=== PATIENT | female | born 1995 | race Caucasian/White ===

== ENCOUNTER 2017-07-29 15:44 | Emergency (ER) | payer BC, SELFPAY | END 2017-07-29 16:39 | disposition home or self-care (01) | DX: K02.9 Dental caries, unspecified (principal); F17.210 Nicotine dependence, cigarettes, uncomplicated | CPT/HCPCS: 96372 ==

== ENCOUNTER 2021-03-15 14:14 | Emergency (ER) | payer OTHER, SELFPAY ==
[2021-03-15 15:17] LABS: Adenovirus,PCR Not Detected (NotDetected); Bordetella Pertussis Not Detected (NotDetected); Chlamydophila Pneumoniae, PCR Not Detected (NotDetected); Coronavirus 229E Not Detected (NotDetected); Coronavirus NL63 Not Detected (NotDetected); Coronavirus OC43 Not Detected (NotDetected); Coronovirus HKU1,PCR Not Detected (NotDetected); Human Metapneumovirus Not Detected (NotDetected); Influenza A, PCR Not Detected (NotDetected); Influenza AH1, 2009 Not Detected (NotDetected); Influenza AH1, PCR Not Detected (NotDetected); Influenza AH3,PCR Not Detected (NotDetected); Influenza B, PCR Not Detected (NotDetected); Mycoplasma Pneumoniae, PCR Not Detected (NotDetected); Parainfluenza 1, PCR Not Detected (NotDetected); Parainfluenza 2, PCR Not Detected (NotDetected); Parainfluenza 3, PCR Not Detected (NotDetected); Parainfluenza 4, PCR Not Detected (NotDetected); Respiratory Syncytial Virus Not Detected (NotDetected); Rhinovirus/Enterovirus Not Detected (NotDetected)
[2021-03-15 15:20] VITALS: BP 124/83; PULSE 98; RESP 18; TEMP 36.8; O2SAT 98; BMI 31.3
[2021-03-15 15:30] VITALS: BP 124/83; PULSE 98; RESP 18; TEMP 36.8; O2SAT 98
--- NOTE | 2021-03-15 15:33 | HMH.EDUTC ---
[facility] – [place] Disposition Clinical Impression: Viral syndrome Disposition: Home, Self-Care Condition on Discharge: Good Instructions: DI for Viral Syndrome, DI for COVID-19 (Suspected or Confirmed ), Coronavirus Disease 2019, Preventing the Spread of Coronavirus Discharge Instructions Additional Instructions: *Monitor Temp, Over the counter Motrin or Tylenol as directed/as needed Tylenol every 4 hours and Motrin every 6 hours (as long as your family doctor has told you that you can take it) for fever or pain. and straight to ER if unable to lower temp less than 101.0 after medication given *Warm salt water gargles may help to soothe the throat *Throat Lozenges *Warm fluids like tea with honey may help to soothe the throat *Sleep elevated *Humidifier/Vaporizer *Flonase 2 sprays in each nostril daily but be aware that it may take 2-3 days before you notice improvement Follow up IMMEDIATELY for new or worsening symptoms or no Noticeable improvement over the next 48-72 hours. 911 for difficulty breathing or swallowing You were tested for today for COVID19 your test result should be back in the next 24-48 hours, you may call to the [facility] to see if your test results are back in the next 48 hours [phone] [facility] hours are 9am-9pm You was given a handout with instructions for Self Quarantine and Self isolation for while you wait on test results and what to do if they are positive If you are positive the Health Dept will be contacting you also Make sure to take your Vitamins Vit. C Vit D and Zinc if you can take them Referrals: Jose Carlos Khan MD [Primary Care Provider] - As needed Forms: Work/School Release Time of Disposition: 16:23 Medical Decision Making - Adithya Inquiry Pt receiving controlled substance: No Adithya was queried for this patient: No Vital Signs: 03/15/21 15:20 03/15/21 15:30 Temperature 98.3 F 98.3 F Temperature Source Oral Pulse Rate 98 H Pulse Rate [Right Radial] 98 H Respiratory Rate 18 18 Blood Pressure 124/83 Blood Pressure [Right Arm] 124/83 Blood Pressure Mean [Right Arm] 96 Blood Pressure Source [Right Arm] Automatic Cuff Blood Pressure Position [Right Arm] Sitting 02 Sat by Pulse Oximetry 98 Oxygen Delivery Method Room Air Orders (Tests/Meds): ORDERS Category Date Time Status Full Resp Panel w/COVID ([facility]) Routine Lab 03/15/21 14:57 Received [facility] [place] HPI - General Stated complaint: covid test to return to work Time Seen by Provider: 03/15/21 15:33 Mode of Arrival: Ambulatory Source of Information: Patient Limitations: No Limitations Description of Symptoms (Recalled from Triage Doc. by RN): PT REPORTS FEVER, HEAD CONGESTION, CHILLS, MUSCLE PAIN, CHEST CONGESTION AND INTERMITTENT SOA. HEENT Symptoms (Recalled from RN notes): Yes (REPORTS CONGESTION,) Resp Symptoms (Recalled from RN notes): Yes (REPORTS INTERMITTENT SOA) Skin Symptoms (Recalled from RN notes): No MS Symptoms (Recalled from RN notes): No Functional Status (Recalled from RN notes): N/A - History of Present Illness Provider Complaint: Patient states that she wanted to get tested for COVID States that she has been having sore throat, cough, feeling like she is starting to get nasal congestion with runny nose at times when she is coughing feels like sometimes it makes her feel a little short of breath States that she wanted to get tested for COVID to make sure she didnt have it Denies known exposure - Related Data Allergies Allergy/AdvReac Type Severity Reaction Status Date / Time No Known Allergies Allergy Unverified 07/17/17 14:02 - Worker's Comp Is this a Worker's Comp case?: No [facility] History - Hepatitis A Screen Drug use history?: No High risk sexual behaviors?: No History of sexually transmitted infection?: No Currently employed?: No Childcare worker?: No Do you have indoor plumbing?: Yes Do you have electricity?: Yes Attestation statement:: This patient has been screened for Hepatitis A risk f
[2021-03-16 09:20] LABS: Coronavirus 19, PCR Detected (NotDetected)
--- NOTE | 2021-03-16 09:49 | PC.NURSE ---
pt notified with positive covid result.
== END 2021-03-15 15:40 | disposition home or self-care (01) ==
PROVIDERS: Emergency Provider Nurse Practitioner; PCP Family Medicine
DX: U07.1 COVID-19 (principal); B34.9 Viral infection, unspecified
CPT/HCPCS: 87581; 87633; 87798; 99202; G0463

== ENCOUNTER → 2021-08-12 17:24 | Outpatient (CLI) | payer BC, OTHER, SELFPAY ==
[2021-08-12 18:40] LABS: HCG,Quantitative 1685 mIU/ml (0-5.42)
== END ==
PROVIDERS: Visit Provider Nurse Practitioner Obstetrics & Gynecology
DX: N92.6 Irregular menstruation, unspecified (principal)
CPT/HCPCS: 36415; 84702

== ENCOUNTER → 2021-09-08 13:42 | Outpatient (CLI) | payer BC, OTHER, SELFPAY ==
--- NOTE | 2021-09-08 13:47 | US_ITS ---
FINAL REPORT CLINICAL HISTORY: US OB before 14 wks for DATES/Confirmation of Preg FINDINGS: PELVIC ULTRASOUND A single living intrauterine is present. A yolk sac is present measuring 0.5 cm. Cardiac activity is confirmed at 154 beats per minute. Estimated gestational age is 8 weeks 5 days based on a crown-rump length of 2.1 cm. Appropriate amount of fluid is present. The right ovary measures up to 3.2 cm. The left ovary measures up to 2.8 cm. There is a 2.1 cm presumed to are right corpus luteum cyst. IMPRESSION: Single living intrauterine with an estimated gestational age of 8 weeks 5 days. Reviewed, Interpreted and Dictated by Felice Otero III, MD Transcribed by Alvarez Finney Authenticated by Felice Otero III, MD on 09/08/2021 03:33:03 PM [facility]
== END ==
PROVIDERS: PCP Family Medicine; Visit Provider Nurse Practitioner Obstetrics & Gynecology
DX: O26.841 Uterine size-date discrepancy, first trimester (principal)
CPT/HCPCS: 76801

== ENCOUNTER → 2021-09-30 09:52 | Outpatient (CLI) | payer BC, OTHER, SELFPAY ==
[2021-09-30 10:36] LABS: Basophils % 0.5 % (0.1-2.0); Eosinophils # 0.2 K/mm3 (0.0-0.4); Eosinophils % 2.6 % (0.1-12.0); Hemoglobin 13.3 g/dL (12.2-16.2); Lymphocytes # 1.4 K/mm3 (0.7-4.5); Lymphocytes % 21.3 % (10-50); Mean Corpuscular HGB Conc 33.2 g/dL (31.8-35.4); Mean Corpuscular Hemoglobin 31.5 pg (27.0-31.2); Mean Corpuscular Volume 94.9 fl (81-99); Mean Platelet Volume 8.8 fl (7.4-10.4); Monocytes # 0.3 K/mm3 (0.1-1.0); Monocytes % 4.7 % (1.7-9.3); Neutrophils # 4.6 K/mm3 (1.8-7.8); Neutrophils % 70.9 % (37.0-80.0); Platelet Count 213 K/mm3 (142-424); Red Blood Count 4.22 M/mm3 (4.20-5.40); Red Cell Distribution Width 12.9 % (11.5-17.5); White Blood Count 6.5 K/mm3 (4.8-10.8)
[2021-10-01 08:15] LABS: HIV Screen 4th Generation wRfx Non Reactive (Non Reactive); Hepatitis B Surface Antigen Negative (Negative); Hepatitis C Antibody <0.1 s/co ratio (0.0-0.9); Rubella Antibodies, IgG 2.27 index (Immune >0.99)
[2021-10-01 11:18] LABS: Rapid Plasma Reagin Ab Titer Non Reactive (NonRea<1:1)
[2021-10-03 13:34] LABS: HSV 2 IgG Supplemental Testing Positive (Negative); HSV 2 IgG, Type Spec 4.84 index (0.00-0.90)
== END ==
PROVIDERS: PCP Family Medicine; Visit Provider Nurse Practitioner Obstetrics & Gynecology
DX: Z34.90 Encounter for supervision of normal pregnancy, unspecified, unspecified trimester (principal)
CPT/HCPCS: 36415; 85025; 86592; 86695; 86703; 86762; 86790; 86850; 87340; 87380; G0432

== ENCOUNTER → 2021-11-21 10:00 | Outpatient (CLI) | payer BC, OTHER, SELFPAY ==
--- NOTE | 2021-11-21 10:00 | US_ITS ---
FINAL REPORT CLINICAL HISTORY: 20 wk + Anatomy Scan-US OB COMPLETE FINDINGS: There is a single live intrauterine gestation. Presentation is cephalic. The cervix is closed and measures 3.5. Placenta is anterior grade 1. Cardiac activity is confirmed at 134 bpm. The heartbeat is irregular. Three-vessel cord with satisfactory umbilical cord insertion. Four-chamber heart is noted. AMNIOTIC FLUID: Appropriate amount. MEASUREMENTS: ULTRASOUND AGE: 19 weeks 6 days. GESTATION AGE: 19 weeks 6 days. ESTIMATED WEIGHT: 319 g GROWTH PERCENTILE: 47% BPD: 4.6 cm corresponding with 19 weeks 6 days. OFD: 6 cm corresponding with 20 weeks 3 days. HC: 16.7 cm corresponding with 19 weeks 3 days. AC: 14.9 cm corresponding with 20 weeks 1 days. FL: 13.1 cm corresponding with 19 weeks 6 days. CEREBELLUM: 1.9 cm corresponding with 19 weeks 6 days. HUMERUS: 3 cm corresponding with 19 weeks 6 days. HC/AC: 1.12 CI: 76% FL/BPD: 68% FL/AC: 21% IMPRESSION: Single living IUP with an ultrasound age of 19 weeks 6 days. Irregular heart beat is noted. Recommend referral for level 2 ultrasound with specific cardiac evaluation. Reviewed, Interpreted and Dictated by Isaias Alexandre MD Transcribed by Thais Nava Authenticated by Isaias Alexandre MD on 11/21/2021 04:32:52 PM [facility]
== END ==
PROVIDERS: PCP Family Medicine; Visit Provider Nurse Practitioner Obstetrics & Gynecology
DX: Z36.0 Encounter for antenatal screening for chromosomal anomalies (principal)
CPT/HCPCS: 76811

== ENCOUNTER → 2022-01-03 07:21 | Outpatient (CLI) | payer BC, OTHER, SELFPAY ==
[2022-01-03 07:45] LABS: Glucose,Fasting 105 mg/dl (74-100)
[2022-01-03 09:18] LABS: Glucose 1 Hour 111 mg/dL (74-100)
== END ==
PROVIDERS: PCP Family Medicine; Visit Provider Nurse Practitioner Obstetrics & Gynecology
DX: Z34.90 Encounter for supervision of normal pregnancy, unspecified, unspecified trimester (principal)
CPT/HCPCS: 36415; 82951

== ENCOUNTER 2022-01-05 16:24 | Outpatient (CLI) | payer BC, OTHER, SELFPAY ==
[2022-01-05 16:51] VITALS: BP 123/76; PULSE 90; RESP 17; TEMP 37; O2SAT 99; BMI 35.5
[2022-01-05 17:07] LABS: Microscopic, Urine URINE MICROSCOPIC (MICROSCOPIC)
[2022-01-05 17:24] LABS: Appearance,Urine CLEAR (Clear); Bilirubin,Urine Negative (Negative); Blood, Urine Negative (Negative); Color,Urine YELLOW (Yellow); Glucose,Urine (UA) Negative (Negative); Ketones,Urine Negative (Negative); Leukocyte Esterase,Urine Negative (Negative); Nitrate,Urine Negative (Negative); PH,Urine 6.5 (5.0-8.5); Protein,Urine Negative (Negative); Specific Gravity, Urine >= 1.030 (1.005-1.030); Urobilinogen,Urine 0.2 EU/dl (0.2)
[2022-01-05 17:35] LABS: Amphetamine/Metha Screen,Urine Negative ng/ml (<1000)
[2022-01-05 17:36] LABS: Barbiturates Screen,Urine Negative ng/ml (<200)
[2022-01-05 17:37] LABS: Benzodiazepines Screen,Urine Negative ng/ml (<200); Cannabinoid Screen,Urine Negative ng/ml (<50)
[2022-01-05 17:38] LABS: Cocaine Screen,Urine Negative ng/ml (<300)
[2022-01-05 17:39] LABS: Methadone Screen,Urine Negative ng/ml (<300); Opiate Screen,Urine Negative ng/ml (<300)
[2022-01-05 17:40] LABS: Phencyclidine Screen,Urine Negative ng/ml (<25)
[2022-01-05 17:53] LABS: Bacteria,Urine 2+ /lpf; RBC,Urine Occasional #/hpf (0-3)
== END 2022-01-05 17:15 | disposition home or self-care (01) ==
LOC: OB 17:48 → OBOUT 01-06 10:51
PROVIDERS: PCP Family Medicine; Visit Provider Nurse Practitioner Obstetrics & Gynecology
DX: O36.8120 Decreased fetal movements, second trimester, not applicable or unspecified (principal); Z3A.26 26 weeks gestation of pregnancy
CPT/HCPCS: 59025; 80305; 81001; 87086; 87088; 87186; G0378; G0463

== ENCOUNTER → 2022-01-06 09:45 | Outpatient (CLI) | payer BC, OTHER, SELFPAY | PROVIDERS: Visit Provider Nurse Practitioner Obstetrics & Gynecology | DX: Z34.90 Encounter for supervision of normal pregnancy, unspecified, unspecified trimester (principal); N39.0 Urinary tract infection, site not specified; B96.20 Unspecified Escherichia coli [E. coli] as the cause of diseases classified elsewhere | CPT/HCPCS: 87086; 87088; 87186 ==

== ENCOUNTER → 2022-02-20 09:00 | Outpatient (CLI) | payer BC, OTHER, SELFPAY ==
--- NOTE | 2022-02-20 09:10 | ECG_ITS ---
APPROVED REPORT Exam: Resting ECG HR:98 bpm ECG Measurements Heart Rate 98 AXES AR 148 P 17 QRSd 119 QRS 24 QT 329 T 7 QTc 384 Conclusion SINUS RHYTHM MODERATE INTRAVENTRICULAR CONDUCTION DELAY [110+ ms QRS DURATION] NONSPECIFIC T-WAVE ABNORMALITY BORDERLINE ECG UNCONFIRMED REPORT Electronically signed by : Agusto Hernandez MD 02/21/2022 21:09:37
== END ==
PROVIDERS: PCP Family Medicine; Visit Provider Nurse Practitioner Obstetrics & Gynecology
DX: Z34.90 Encounter for supervision of normal pregnancy, unspecified, unspecified trimester (principal)
CPT/HCPCS: 93005

== ENCOUNTER 2022-03-07 10:51 | Outpatient (CLI) | payer BC, OTHER, SELFPAY ==
--- NOTE | 2022-03-07 10:53 | CA_ITS ---
APPROVED REPORT EXAM: Comprehensive 2D, Doppler, and color-flow Echocardiogram Yarn Washer: Willa Humphreys RVT Ht: 5 ft 6 in Wt: 229lbs BSA: 2.12 BP: 113/74 mmHg Indications: SOA,35 WEEKS PREG 2D Dimensions LVOT 1.97 cm (M/F) 1.5-2.5 M-Mode Dimensions RVDd 1.29 cm (0.9-2.6) LA Diam 2.80 cm (1.9-4.0) LVDd 5.11 cm (3.5-5.7) Ao Diam 2.55 cm (2.0-3.7) LVDs 3.18 cm (3.5-5.7) IVSd 1.07 cm (0.6-1.1) PWd 0.32 cm (0.6-1.1) EF (Teich) 67.60% FS 37.80% EDV (Teich) 124.40 mL ESV (Teich) 40.30 mL LV Diastology E Decel Time 150.00 (160-240 msec) E/A Ratio 1.3 MED E' 7.50 (< 7 cm/sec) E'/MED E' Ratio 12.03 (>14) LAT E' 12.10 (<10 cm/sec) E/LAT E' Ratio 7.45 (>14) Aortic Valve AO Peak GR. 6.10 mmHg Mitral Valve MV E Max Kurt. 90.00 (40-130 cm/s) MV A Velocity 68.00 (40-130 cm/s) E/A Ratio 1.32 MV Decel. Time 150.00 (160-240 ms) MV PHT 44.00 ms Pulmonary Valve PV Peak Velocity 97.00 (50-150 cm/s) Left Ventricle Left atrium is normal size, left ventricle is normal size, preserved left ventricular systolic function, estimated ejection fraction 55% with no regional wall motion abnormality, diastolic parameters are within normal range. Right Ventricle Right atrium and right ventricle are normal size and contractility. Aortic Valve Aortic valve is grossly normal, there is no aortic stenosis or aortic insufficiency. Mitral Valve Mitral valve grossly normal, there is trace mitral regurgitation. Tricuspid Valve Tricuspid valve grossly normal, there is trace tricuspid regurgitation, tricuspid regurgitation jet velocity is inadequate for calculation of the right ventricular systolic pressure. Pulmonic Valve Pulmonic valve is grossly normal. Great Vessels Aortic root is normal size. Inferior vena cava is normal size with normal inspiratory collapse. Pericardium No significant pericardial effusion noted. Conclusion 1. Normal left ventricular size preserved left ventricular systolic function, estimated ejection fraction 55% with no regional wall motion abnormality, diastolic parameters are within normal range. 2. Trace mitral and tricuspid regurgitation of no hemodynamic significance. 3. No significant pericardial effusion noted. 4. Inferior vena cava normal size with normal inspiratory collapse. Electronically signed by : Nate Melgar MD 03/08/2022 06:08:42
[2022-03-07 11:47] VITALS: BMI 37.1
[2022-03-07 12:11] LABS: Microscopic, Urine URINE MICROSCOPIC (MICROSCOPIC)
[2022-03-07 12:14] LABS: Appearance,Urine CLEAR (Clear); Bilirubin,Urine Negative (Negative); Blood, Urine Negative (Negative); Color,Urine YELLOW (Yellow); Glucose,Urine (UA) Negative (Negative); Ketones,Urine Negative (Negative); Leukocyte Esterase,Urine Negative (Negative); Nitrate,Urine Negative (Negative); Protein,Urine Negative (Negative); Specific Gravity, Urine <= 1.005 (1.005-1.030); Urobilinogen,Urine 0.2 EU/dl (0.2)
[2022-03-07 12:21] LABS: Fetal Membrane Rupture (Rapid) Negative (Negative)
[2022-03-07 12:25] LABS: Amphetamine/Metha Screen,Urine Negative ng/ml (<1000); Barbiturates Screen,Urine Negative ng/ml (<200)
[2022-03-07 12:26] LABS: Benzodiazepines Screen,Urine Negative ng/ml (<200)
[2022-03-07 12:27] LABS: Bacteria,Urine Trace /lpf; Cannabinoid Screen,Urine Negative ng/ml (<50); Cocaine Screen,Urine Negative ng/ml (<300); WBC,Urine Occasional #/hpf (0-3)
[2022-03-07 12:28] LABS: Methadone Screen,Urine Negative ng/ml (<300); Opiate Screen,Urine Negative ng/ml (<300)
[2022-03-07 12:29] LABS: Phencyclidine Screen,Urine Negative ng/ml (<25)
[2022-03-07 12:39] VITALS: BP 119/74; PULSE 96; RESP 19; TEMP 37.1; O2SAT 96; BMI 37.1
== END 2022-03-07 13:16 | disposition home or self-care (01) ==
LOC: RT 10:53 → OB 10:54
PROVIDERS: Nurse Practitioner Obstetrics & Gynecology; PCP Family Medicine; Visit Provider Physician Assistant
DX: R00.2 Palpitations (principal); R06.09 Other forms of dyspnea; Z3A.36 36 weeks gestation of pregnancy
CPT/HCPCS: 59025; 80305; 81001; 84112; 93306; G0463

== ENCOUNTER → 2022-03-15 06:18 | Outpatient (CLI) | payer BC, OTHER, SELFPAY | PROVIDERS: Visit Provider Nurse Practitioner Obstetrics & Gynecology | DX: Z34.90 Encounter for supervision of normal pregnancy, unspecified, unspecified trimester (principal) | CPT/HCPCS: 86403 ==

== ENCOUNTER 2022-03-27 17:23 | Emergency (ER) | payer BC, OTHER, SELFPAY ==
[2022-03-27 19:30] VITALS: BP 0/0; PULSE 0; RESP 0; TEMP -17.7; TEMP 0
== END 2022-03-27 19:33 | disposition left against medical advice (07) ==
LOC: UTC 19:02
PROVIDERS: Emergency Provider Nurse Practitioner; PCP Family Medicine
DX: Z53.21 Procedure and treatment not carried out due to patient leaving prior to being seen by health care provider (principal)

== ENCOUNTER → 2022-04-02 08:30 | Outpatient (CLI) | payer BC, OTHER, SELFPAY ==
[2022-04-02 10:19] LABS: Basophils % 0.4 % (0.1-2.0); Eosinophils # 0.1 K/mm3 (0.0-0.4); Eosinophils % 1.6 % (0.1-12.0); Hematocrit 35.7 % (37.0-47.0); Hemoglobin 11.3 g/dL (12.2-16.2); Lymphocytes # 1.7 K/mm3 (0.7-4.5); Lymphocytes % 21.9 % (10-50); Mean Corpuscular HGB Conc 31.7 g/dL (31.8-35.4); Mean Corpuscular Hemoglobin 28.5 pg (27.0-31.2); Mean Corpuscular Volume 89.9 fl (81-99); Mean Platelet Volume 9.4 fl (7.4-10.4); Monocytes # 0.5 K/mm3 (0.1-1.0); Neutrophils # 5.3 K/mm3 (1.8-7.8); Neutrophils % 69.1 % (37.0-80.0); Platelet Count 244 K/mm3 (142-424); Red Blood Count 3.97 M/mm3 (4.20-5.40); Red Cell Distribution Width 16.6 % (11.5-17.5); White Blood Count 7.7 K/mm3 (4.8-10.8)
[2022-04-02 10:23] LABS: Alanine Aminotransferase 19 U/L (12-78); Albumin Level 3.2 g/dl (3.5-5.0); Alkaline Phosphatase 135 U/L (38-126); Anion Gap 11.8 mEq/L (5-15); Aspartate Amino Transferase 27 U/L (14-36); Blood Urea Nitrogen 6 mg/dl (7-17); Calcium 9.2 mg/dl (8.4-10.2); Carbon Dioxide 19 mmol/L (22.0-30.0); Chloride 109 mmol/L (98-107); Estimated Glomerular Filt Rate 147 ml/min (>60); GFR (African American) 178 ML/MIN (>60); Globulin 3.3 g/dL (1.3-3.2); Glucose 102 mg/dl (74-100); Potassium 3.8 mmoL/L (3.5-5.1); Sodium 136 mmol/L (136-145); Total Protein,Serum 6.5 g/dl (6.3-8.2)
[2022-04-02 10:33] LABS: Bilirubin,Total < 0.1 mg/dl (0.2-1.3)
== END ==
PROVIDERS: PCP Family Medicine; Visit Provider Nurse Practitioner Obstetrics & Gynecology
DX: Z01.812 Encounter for preprocedural laboratory examination (principal); Z20.822 Contact with and (suspected) exposure to COVID-19; Z34.90 Encounter for supervision of normal pregnancy, unspecified, unspecified trimester
CPT/HCPCS: 36415; 80053; 85025; C9803; U0003; U0005

== ENCOUNTER 2022-04-04 05:05 | Inpatient (IN) | payer BC, OTHER, SELFPAY ==
[2022-04-04] VITALS (7 sets, daily range): BP systolic 109–139; BP diastolic 60–83; PULSE 89–99; RESP 13–18; TEMP 36.8–37.1; O2SAT 96–100; BMI 37.5
[2022-04-04 05:41] LABS: Coronavirus 19, PCR Not Detected (NotDetected); Influenza A, PCR Not Detected (NotDetected); Influenza B, PCR Not Detected (NotDetected)
[2022-04-04 05:43] LABS: Basophils % 0.2 % (0.1-2.0); Eosinophils # 0.2 K/mm3 (0.0-0.4); Eosinophils % 2.1 % (0.1-12.0); Hematocrit 33.7 % (37.0-47.0); Hemoglobin 10.8 g/dL (12.2-16.2); Lymphocytes # 1.8 K/mm3 (0.7-4.5); Lymphocytes % 21.9 % (10-50); Mean Corpuscular HGB Conc 32.2 g/dL (31.8-35.4); Mean Corpuscular Hemoglobin 28.3 pg (27.0-31.2); Mean Platelet Volume 9.3 fl (7.4-10.4); Monocytes # 0.6 K/mm3 (0.1-1.0); Monocytes % 6.9 % (1.7-9.3); Neutrophils # 5.6 K/mm3 (1.8-7.8); Neutrophils % 68.8 % (37.0-80.0); Platelet Count 237 K/mm3 (142-424); Red Blood Count 3.83 M/mm3 (4.20-5.40); Red Cell Distribution Width 16.7 % (11.5-17.5); White Blood Count 8.1 K/mm3 (4.8-10.8)
[2022-04-04 05:58] LABS: Chloride 111 mmol/L (98-107); Potassium 4.4 mmoL/L (3.5-5.1); Sodium 136 mmol/L (136-145)
[2022-04-04 06:01] LABS: Blood Urea Nitrogen 6 mg/dl (7-17); Creatinine Clearance Estimated 288 mL/min (50-200); Estimated Glomerular Filt Rate 147 ml/min (>60); GFR (African American) 178 ML/MIN (>60)
[2022-04-04 06:03] LABS: Anion Gap 11.4 mEq/L (5-15); Carbon Dioxide 18 mmol/L (22.0-30.0)
[2022-04-04 06:07] LABS: Calcium 8.2 mg/dl (8.4-10.2); Glucose 96 mg/dl (74-100)
--- NOTE | 2022-04-04 07:57 | EXP.ANES.CKL ---
[facility] Medical History Dyspnea Palpitations Social History Smoking Status: Never smoker alcohol intake: never substance use type: denies use current occupational status: employed Travel in the last 8 weeks: None [facility] Anesthesia Checklist Patient Identification Patient Identification: Arm Band and Verbal (Name & ) Structural Data Admitted From: Inpatient Planned Operative Procedure/s: C/S Consent for Planned Operative Procedure(s) Verified: Yes NPO Status Verified Time NPO: 00:00 Chart Verification Results Verified: CBC and BMP Additional verifications Patient : Yes Anesthesia Reactions: No Airway Assessment C-Spine Mobility Assessed: Yes TMJ Mobility Assessed: Yes Dentition: Good Dentition Neurological Assessment Level of Consciousness: Awake Hx Seizures: No Numbness or tingling in extremities: No Anesthesia Plan Anesthesia Risk discussed: Yes Anesthesia Plan: Verified ASA Class: II Anesthesia Type: Spinal (Spinal and TAP block)
--- NOTE | 2022-04-04 08:29 | EXP.ANES.I ---
[facility] Anesthesia Record Part I Anesthesia Record I Intake, IV Amount: 900 Estimated blood loss (mL): 600 Urine output (mL): 0 Blood Pressure: 139/82 SaO2: 96 Pulse Rate: 99 Respiratory Rate: 13 Temperature: 98.2 F Patient is:: Awake Stable to PACU at:: 08:30
--- NOTE | 2022-04-04 08:31 | EXP.OP.NOTE ---
Date of procedure: 04/04/22 Pre-op Diagnosis:: Term , previous section, herpes 2 positive Post-op Diagnosis:: Term , previous section, herpes 2 positive, uterine atony Procedure performed:: Repeat lower segment transverse section and B-Hudson suture Surgeon:: Oscar Chiu MD Screw Supervisor(s):: Dr. Cheney TEXTILE COATING MACHINE OPERATOR:: Other (Sohan Rojas) Anesthesia: spinal Estimated blood loss (mL): 600 Clinical Note:: She is a 26-year-old 3 para 1 aborta 1 who is 39 weeks gestational age. 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 As result of that she was offered repeat lower segment transverse section at term. Operative findings:: She delivered a liveborn male child at 7:49 AM on the morning of April 04, 2022. The baby had Apgars of 9 at 1 minute and 9 at 5 minutes. There was a loose nuchal cord. Ovaries and tubes look normal. The uterus was somewhat boggy after the surgery so we elected to place a B hudson suture. Operative note:: She was taken to the operating room where spinal anesthesia was found be adequate. She was prepped and draped in normal sterile fashion in the supine position with a leftward tilt. A Armijo catheter was in the bladder. A Pfannenstiel skin incision was made with knife then carried through to the underlying layer of fascia with cautery. The fascia was opened in the midline with cautery and extended laterally using Puentes scissors. Ravinder clamps were applied to the superior aspect of the fascial incision which was tented up and the underlying rectus muscles dissected off using cautery. The Pacoima clamps were then applied to the inferior aspect of the fascial incision which in a similar fashion was tented up and the underlying rectus muscles dissected off using cautery. The rectus muscles were then in the midline, the peritoneum identified, and entered sharply with Metzenbaum scissors. This incision was then extended superiorly and inferiorly with cautery. We had good visualization of the bladder inferiorly. We inserted an Cayetano retractor. The bladder peritoneum was then opened in the midline and extended laterally using Metzenbaum scissors. A bladder flap was created digitally. Transverse incision was made through the uterine muscle to the amnion. This incision was then extended laterally using fingers traction. The amnion was entered sharply with knife. There was clear amniotic fluid. The 's head was then delivered atraumatically. A loose nuchal cord was then reduced. This was followed by the anterior shoulder and the rest of the infant's body atraumatically. The oropharynx and nasopharynx were bulb suctioned. The baby was vigorous so we allowed the cord to continue to pulsate for approximately 1 minute. The cord is then doubly clamped and cut. The infant was then handed off to Dr. Kahn who assigned Apgars of 9 at 1 minute and 9 at 5 minutes. We then obtained cord blood. Using gentle traction on the cord and countertraction on the fundus I was able to easily deliver the placenta intact. It had a normal three-vessel cord. The uterus was then cleared of clots and debris . The uterine incision was then closed using running 0 Vicryl suture in a locked fashion. A second layer of the same suture was used to imbricate the first layer. The bladder peritoneum was then closed using running 2-0 Vicryl suture in a locked fashion. The gutters and cul-de-sac were then cleared of clots and debris . Once again hemostasis was assured. The uterus was exteriorized and the abdominal cavity since it was feeling quite boggy. We elected to place a B-hudson suture. Using #1 Vicryl suture on a large protect point needle I took a bite anteriorly on the uterus. This was followed by 2 bites posteriorly and then bringing the suture back again anteriorly. The suture was then cinched down and tied. The uterus was then returned to the abdominal cavity. Once again hemostasis was assure
--- NOTE | 2022-04-04 08:43 | EXP.HP ---
History of Present Illness *Admission Date: 04/04/22 *Reason for visit:: Repeat lower segment transverse section *History of present illness: She is a 26-year-old 3 para 1 aborta 1 at 39 weeks gestational age. She had a previous section and is admitted for repeat lower segment transverse section. [facility] Medical History Dyspnea Palpitations Social History Smoking Status: Never smoker alcohol intake: never substance use type: denies use current occupational status: employed Travel in the last 8 weeks: None Review of Systems Review of Systems Review of systems:: pertinent systems reviewed and negative unless documented below Meds Home Medications and Allergies Home Medications Medication Instructions Recorded Confirmed Type PNV 153-FA 400 mcg-om3 35 mg-dha 1 tab PO DAILY Supplement 08/30/21 04/04/22 History 25 mg-epa 5 mg-fish oil chew tablet ( Gummies) New Prescriptions to Start Prescriptions: Allergies Allergy/AdvReac Type Severity Reaction Status Date / Time No Known Allergies Allergy Verified 03/29/22 15:54 Exam Data for Last 24 hours Vital signs and Labs for Last 24 Hours: Temp Pulse Resp BP Pulse Ox 98.2 F 99 H 13 139/82 100 04/04/22 08:31 04/04/22 08:31 04/04/22 08:31 04/04/22 08:31 04/04/22 05:47 Laboratory Results - last 24 hr 04/04/22 05:20: WBC 8.1, RBC 3.83 L, Hgb 10.8 L, Hct 33.7 L, MCV 88.0, MCH 28.3, MCHC 32.2, RDW 16.7, Plt Count 237, MPV 9.3, Neut % (Auto) 68.8, Lymph % (Auto) 21.9, Rowan % (Auto) 6.9, Eos % (Auto) 2.1, Baso % (Auto) 0.2, Neut # (Auto) 5.6, Lymph # (Auto) 1.8, Rowan # (Auto) 0.6, Eos # (Auto) 0.2, Baso # (Auto) 0.0 04/04/22 05:20: Sodium 136, Potassium 4.4, Chloride 111 H, Carbon Dioxide 18 L, Anion Gap 11.4, BUN 6 L, Creatinine 0.50 L, Estimated Creat Clear 288, Estimated GFR 147, Est GFR ( Amer) 178, Glucose 96, Calcium 8.2 L 04/04/22 05:20: SARS-CoV-2 (PCR) Not detected, Influenza A Untype (PCR) Not detected, Influenza Type B (PCR) Not detected 04/04/22 05:20: Blood Type A Positive, Antibody Screen Negative I & O for Last 24 hours: Intake & Output 04/01/22 04/02/22 04/03/22 04/04/22 11:59 11:59 11:59 11:59 Intake Total 900 / 900 Balance 900 / 900 Weight 240 lb Constitutional Constitutional: no acute distress *Routine HEENT Exam Head: Present normocephalic Eye: Present EOMI and PERRL ENT: Present mucous membranes moist *Routine Neck Exam Neck: Present supple and full ROM *Routine Respiratory Exam Respiratory: Absent accessory muscle use (good air entry bilaterally), wheezes or crackles *Routine Cardiovascular Exam Cardiovascular: Present RRR; Absent murmur *Routine Abdominal Exam Abdominal: Present soft and normoactive bowel sounds; Absent tenderness, rebound, guarding or mass *Routine Rectal Exam Rectal:: deferred *Routine Genitalia Exam Genitalia:: normal female *Routine Extremities Exam Extremities: Present full ROM; Absent cyanosis, edema or calf tenderness *Routine Skin Exam Skin: Present intact (good color) *Routine Neurological Exam Neurological: Present alert and oriented X3 Routine Psychiatric Exam Psychiatric: Present normal affect Detailed Rectal Exam Patient deferred: visual exam and digital exam Detailed Exam Patient deferred: external exam, groin exam and perineal exam Assessment and Plan *Assessment and plan (1) History of : Status: Chronic Category: Surgical Code(s): Z98.891 - History of uterine scar from previous surgery (2) delivery delivered: Status: Acute Category: Medical Code(s): O82 - Encounter for delivery without indication (3) HSV-2 seropositive: Status: Acute Category: Medical Code(s): R76.8 - Other specified abnormal immunological fi
--- NOTE | 2022-04-04 09:10 | SUR.PHASEI ---
0892- detailed report called to araseli land on OB floor 0901- pt left in stable condition with araseli land in pt room.
--- NOTE | 2022-04-04 10:56 | EXP.ANES.II ---
[facility] Anesthesia Record Part II Anesthesia Record Part II Discharge Time: 09:00 Destination: Obstetric PACU nurse assessment reviewed?: Yes Patient Condition:: Good Anesthesia Complications:: None Swallowing reflex intact?: Yes Cyanosis?: No Blood Pressure: 109/76 Pulse Rate: 94 Temperature: 98.7 F Mental Status: Alert & Oriented Pain level:: 0 Nausea and/or vomitting:: None Intake, IV Amount: 0
[2022-04-04 11:31] LABS: Microscopic, Urine URINE MICROSCOPIC (MICROSCOPIC)
[2022-04-04 11:37] LABS: Appearance,Urine CLEAR (Clear); Bilirubin,Urine Negative (Negative); Blood, Urine Negative (Negative); Color,Urine YELLOW (Yellow); Glucose,Urine (UA) Negative (Negative); Ketones,Urine Negative (Negative); Leukocyte Esterase,Urine Negative (Negative); Nitrate,Urine Negative (Negative); Protein,Urine Negative (Negative); Urobilinogen,Urine 0.2 EU/dl (0.2)
[2022-04-04 11:49] LABS: Benzodiazepines Screen,Urine Negative ng/ml (<200)
[2022-04-04 11:50] LABS: Amphetamine/Metha Screen,Urine Negative ng/ml (<1000); Barbiturates Screen,Urine Negative ng/ml (<200)
[2022-04-04 11:51] LABS: Cannabinoid Screen,Urine Negative ng/ml (<50); Squamous Epithelial Cell,Urine Occasional #/hpf (0-5)
[2022-04-04 11:52] LABS: Cocaine Screen,Urine Negative ng/ml (<300); Methadone Screen,Urine Negative ng/ml (<300)
[2022-04-04 11:53] LABS: Opiate Screen,Urine Negative ng/ml (<300); Phencyclidine Screen,Urine Negative ng/ml (<25)
[2022-04-05 06:53] LABS: Hematocrit 29.8 % (37.0-47.0); Hemoglobin 9.7 g/dL (12.2-16.2)
--- NOTE | 2022-04-05 11:06 | EXP.ACUTE.PN ---
Subjective *Date: 04/05/22 *Time: 11:06 Interval history: She is doing very well at this morning. She is 1 day post section. Her pain is well controlled with a tap block. Vital signs are stable. She is breast-feeding. Her lochia is normal. Medical Exam Vital signs and Labs for Last 24 Hours: Temp Pulse Resp BP Pulse Ox 98.7 F 94 H 18 109/76 L 98 04/04/22 10:57 04/04/22 10:57 04/04/22 09:00 04/04/22 10:57 04/04/22 09:00 Laboratory Results - last 24 hr 04/04/22 07:32: Urine Color Yellow, Urine Appearance Clear, Urine pH 7.0, Ur Specific [place] 1.010, Urine Protein Negative, Urine Glucose (UA) Negative, Urine Ketones Negative, Urine Blood Negative, Urine Nitrate Negative, Urine Bilirubin Negative, Urine Urobilinogen 0.2, Ur Leukocyte Esterase Negative, Urine RBC None, Urine WBC None, Ur Squamous Epith Cells Occasional, Urine Bacteria None 04/04/22 07:32: Urine Opiates Screen Negative, Urine Methadone Screen Negative, Ur Barbituates Screen Negative, Ur Phencyclidine Scrn Negative, Ur Amphetamines Screen Negative, U Benzodiazepines Scrn Negative, Urine Cocaine Screen Negative, U Marijuana (THC) Screen Negative 04/05/22 06:37: Hgb 9.7 L, Hct 29.8 L I & O for Labs for Last 24 Hours: Intake & Output 04/02/22 04/03/22 04/04/22 04/05/22 11:59 11:59 11:59 11:59 Intake Total 900 / 900 Output Total 1999 / 1999 Balance 900 / 900 -1999 / -1999 Weight 240 lb Head: atraumatic Eyes: as per HPI ENT: normal exam Neck: normal inspection Respiratory: accessory muscle use or normal respiratory effort GI: soft, distention or tenderness Comments:: Her incision is clean and dry. Rectal (female): deferred (female): deferred Extremities: normal inspection Skin: intact Neuro: alert and awake Assessment and Plan *Assessment and plan (1) delivery delivered: Status: Acute Category: Medical Code(s): O82 - Encounter for delivery without indication (2) History of : Status: Chronic Category: Surgical Code(s): Z98.891 - History of uterine scar from previous surgery (3) HSV-2 seropositive: Status: Acute Category: Medical Code(s): R76.8 - Other specified abnormal immunological findings in serum Plan She is here for repeat lower segment transverse section. Assessment and plan all Dx Assessment and Plan All Dx:: She is doing very well 1 day post section. Her pain is well controlled. She is breast-feeding. We will plan to send her home tomorrow.
--- NOTE | 2022-04-06 08:45 | EXP.DC.SUM ---
General Admission date:: 04/04/22 Discharge date: 04/06/22 HPI HPI HPI: She is a 26-year-old 3 para 1 aborta 1 at 39 weeks gestational age. She had a previous section and is admitted for repeat lower segment transverse section. Hospital Course Hospital Course Hospital Course: On April 04, 2022 she underwent a repeat lower segment transverse section. She delivered a liveborn male child at 7:49 AM. The baby weighed 8 pounds 0 ounces and had Apgars of 9 at 1 minute and 9 at 5 minutes. She has done well and has remained afebrile throughout her hospitalization. She is eating and drinking and ambulating. Her incision is clean and dry. She is breast-feeding She will be discharged home to follow-up with me in approximately 3 weeks time. She will continue with her vitamins. She is been given a prescription for iron she has been given a prescription for Percocet 5/325 number 20 tablets. She was given the usual instructions with respect to limiting her activity, driving and sexual activity. She was given instructions with respect to wound care. Her condition on discharge is stable and improved Exam Data for Last 24 hours Vital signs and Labs for Last 24 Hours: Temp Pulse Resp BP Pulse Ox 98.7 F 94 H 18 109/76 L 98 04/04/22 10:57 04/04/22 10:57 04/04/22 09:00 04/04/22 10:57 04/04/22 09:00 I & O for Last 24 hours: Intake & Output 04/03/22 04/04/22 04/05/22 04/06/22 11:59 11:59 11:59 11:59 Intake Total 900 / 900 Output Total 1999 / 1999 Balance 900 / 900 -1999 / Weight 240 lb Constitutional Constitutional: no acute distress *Routine HEENT Exam Head: Present normocephalic *Routine Respiratory Exam Respiratory: Present normal respiratory effort *Routine Abdominal Exam Abdominal: Present soft and surgical scars (Her incision is clean and dry); Absent tenderness or distended DS: Diagnosis Discharge Diagnosis (1) delivery delivered: Status: Acute (2) History of : Status: Chronic (3) HSV-2 seropositive: Status: Acute Meds Home Medications and Allergies Home Medications Medication Instructions Recorded Confirmed Type PNV 153-FA 400 mcg-om3 35 mg-dha 1 tab PO DAILY Supplement 08/30/21 04/04/22 History 25 mg-epa 5 mg-fish oil chew tablet ( Gummies) ferrous sulfate 325 mg (65 mg 325 mg PO DAILY #30 tabs 04/06/22 Rx iron) tablet (Iron (ferrous sulfate)) oxycodone-acetaminophen 5 mg-325 1 tab PO Q4H PRN severe pain. #20 04/06/22 Rx mg tablet (Percocet) tabs New Prescriptions to Start Prescriptions: ferrous sulfate [Iron (ferrous sulfate)] Oscar Chiu oxycodone-acetaminophen [Percocet] Oscar Chiu Allergies Allergy/AdvReac Type Severity Reaction Status Date / Time No Known Allergies Allergy Verified 03/29/22 15:54 Discharge Plan Disposition Patient Disposition: Home, Self-Care Discharge Order Discharge Orders: Discharge Order (Routine); Ordered 04/06/22 Ordered By: Oscar Chiu Follow up Plan Prescriptions/Medication Reconciliation: New oxycodone-acetaminophen [Percocet] 5-325 mg Tablet 1 tab PO Q4H PRN (Reason: severe pain.) Qty: 20 0RF ferrous sulfate [Iron (ferrous sulfate)] 325 mg (65 mg iron) Tablet 325 mg PO DAILY Qty: 30 1RF Continued Gummies 400 mcg-35 mg- 25 mg-5 mg tablet,chewable 1 tab PO DAILY Problem Reconciliation Problems Reviewed?: Yes Patient Discharge Instructions ACTIVITY: No heavy lifting DIET: continue same diet Additional Instructions: Nothing in the vagina for 6 weeks. No strenuous activity or heavy lifting for 6 weeks. Clean incision twice a day and keep incision dry Do not drive if taking opioid pain medications Patient Instructions: Depression, Hemorrhage, DI for , DI fo
== END 2022-04-06 12:10 | disposition home or self-care (01) | DRG 787 ==
PROVIDERS: Admitting Provider Nurse Practitioner Obstetrics & Gynecology; PCP Family Medicine; Visit Provider Nurse Practitioner Obstetrics & Gynecology
PROC: 10D00Z1 Extraction of Products of Conception, Low, Open Approach (ICD-10-PCS; CPT 59514; principal; 2022-04-04 07:30)
DX: O34.211 Maternal care for low transverse scar from previous cesarean delivery (principal); O98.52 Other viral diseases complicating childbirth; Z3A.39 39 weeks gestation of pregnancy; Z37.0 Single live birth; O62.2 Other uterine inertia
CPT/HCPCS: 59514; 36415; 59025; 80048; 80305; 81001; 85014; 85018; 85025; 86850; 94761; C9803; G0283; J2405; U0003; U0005

== ENCOUNTER 2022-12-12 13:08 | Emergency (ER) | payer BC, OTHER, SELFPAY ==
[2022-12-12 13:13] VITALS: BP 139/93; PULSE 102; RESP 18; O2SAT 98; BMI 33.9
--- NOTE | 2022-12-12 13:28 | EXP.UTC ---
Discharge Plan Disposition Patient Disposition: Home, Self-Care Condition: Good Prescriptions Prescriptions: New cephalexin 500 mg capsule 500 mg PO QID Qty: 40 0RF methylprednisolone 4 mg Tablets,Dose Pack 4 mg PO DIRECTED Qty: 21 0RF No Action Gummies 400 mcg-35 mg- 25 mg-5 mg tablet,chewable 1 tab PO DAILY fluconazole [Diflucan] 150 mg tablet 150 mg PO DAILY 1 Days Qty: 1 0RF oxycodone-acetaminophen [Percocet] 5-325 mg Tablet 1 tab PO Q4H PRN (Reason: severe pain.) Qty: 20 0RF ferrous sulfate [Iron (ferrous sulfate)] 325 mg (65 mg iron) Tablet 325 mg PO DAILY Qty: 30 1RF Referrals Follow up/Referrals: Jose Carlos Khan MD [Primary Care Provider] - See instructions Activity Restrictions/Add. Instructions Additional Instructions/Restrictions: Drink plenty of fluids. Take tylenol for pain or fever. Take the medications as directed. Follow up with your regular doctor. GO TO THE ER FOR ANY WORSENING SYMPTOMS Don't breast feed for 2 hours after taking the steroids (methylprednisone). Follow up for the results of the viral swab we took. Call back in 3 days to check on the results of this. Clinical Impressions Clinical Impression: Folliculitis Instructions Patient Instructions: Folliculitis, DI for Folliculitis Discharge ED Provider: Sohan Max [facility] – [place] HPI General Stated complaint: Possible poison zabrina rash Time Seen by Provider: 12/12/22 13:28 History of Present Illness Provider Complaint: She states that for the past 3 days she had irritation of the skin on her left inner thigh. There is a small area on her right thigh also. Related Data Home Medications Medication Instructions Recorded Confirmed PNV 153-FA 400 mcg-om3 35 mg-dha 1 tab PO DAILY Supplement 08/30/21 05/25/22 25 mg-epa 5 mg-fish oil chew tablet ( Gummies) Previous Rx's Medication Instructions Recorded ferrous sulfate 325 mg (65 mg 325 mg PO DAILY #30 tabs 04/06/22 iron) tablet (Iron (ferrous sulfate)) oxycodone-acetaminophen 5 mg-325 1 tab PO Q4H PRN severe pain. #20 04/06/22 mg tablet (Percocet) tabs fluconazole 150 mg tablet 150 mg PO DAILY 1 day #1 tab 11/09/22 (Diflucan) cephalexin 500 mg capsule 500 mg PO QID #40 caps 12/12/22 methylprednisolone 4 mg tablets in 4 mg PO DIRECTED #21 tabs 12/12/22 a dose pack Allergies Allergy/AdvReac Type Severity Reaction Status Date / Time No Known Allergies Allergy Verified 12/12/22 13:31 [facility] Disclaimer: The information contained in this section may have been updated after the patient was seen, as this information can be updated by other users. Medical History Dyspnea Palpitations Patient left before triage assessment Social History Smoking Status: Never smoker alcohol intake: never substance use type: denies use current occupational status: employed Travel in the last 8 weeks: None ROS Obtained: Yes All systems reviewed & no additional complaints except as documented Constitutional Constitutional: Denies chills and Denies fever(s) Eyes Eyes: Denies eye discharge ENT Ears, Nose, Mouth, and Throat: Denies dizziness, Denies otalgia and Denies sore throat Cardiovascular Cardiovascular: Denies chest pain Respiratory Respiratory: Denies shortness of breath, Denies chest congestion, Denies cough, Denies stridor and Denies wheezing Gastrointestinal Gastrointestingal: Denies nausea or vomiting Musculoskeletal Musculoskeletal: Reports system reviewed and no additional complaints, except as documented and Denies arthralgias Integumentary/Breasts Skin/Breast: Reports as per HPI and Reports rash Neurologic Neurologic: Denies dizziness and Denies paresthesias Allergic/Immunologic Allergic/Immunologic: Denies wheezing Physical Exam General General appearance:
[2022-12-12 14:09] VITALS: BP 139/93; PULSE 105; RESP 18; TEMP 36.6
== END 2022-12-12 14:12 | disposition home or self-care (01) ==
PROVIDERS: Emergency Provider Nurse Practitioner Family; PCP Family Medicine
DX: L73.9 Follicular disorder, unspecified (principal)
CPT/HCPCS: 87252; 99212; 99214; G0463

== ENCOUNTER 2024-05-27 16:28 | Outpatient (CLI) | payer BC, SELFPAY ==
[2024-05-27 17:41] LABS: HCG,Quantitative 149 mIU/ml (0-5.42)
[2024-05-29 08:22] LABS: Progesterone 18.1 ng/mL (.)
== END 2024-05-27 23:59 | disposition home or self-care (01) ==
LOC: LAB 16:29
PROVIDERS: PCP Nurse Practitioner Family; Visit Provider Nurse Practitioner Obstetrics & Gynecology
DX: Z32.00 Encounter for pregnancy test, result unknown (principal)
CPT/HCPCS: 36415; 84144; 84702

== ENCOUNTER 2024-06-13 08:21 | Outpatient (CLI) | payer OTHER, SELFPAY ==
--- NOTE | 2024-06-13 08:21 | US_ITS ---
PROCEDURE: US OB <= 14 WEEKS FETUS CLINICAL INDICATION: Dates and Confirmation of COMPARISON: No exams were available for comparison FINDINGS: Transvaginal sonographic images of the pelvis were obtained. From her last menstrual period she is 6weeks 4days. An intrauterine gestational sac is present with a pole with a crown-rump length of 0.35cm This correlates to a gestational age of 6weeks 0 days. heart tones are present with an FHR of 107bpm. Yolk sac is noted. The yolk sac measures 4.4mm. The right ovary is seen and appears normal. There is a corpus luteum in the right ovary. The left ovary is seen and appears normal. There is no fluid in the cul-de-sac. IMPRESSION: 1. Viable fetus within the uterine cavity with heart rate activity. 2. Gestational age is 6 weeks 0 days. BON will remain 02/02/2025. 3. Both ovaries are seen and appear normal. A corpus luteum is seen in the right ovary. 4. No fluid in the cul-de-sac. 5. There appears to be a small subchorionic hemorrhage. Dictated by: Oscar Chiu MD 06/13/2024 17:11 Oscar Chiu MD in OV 06/13/2024 17:11
== END 2024-06-13 23:59 | disposition home or self-care (01) ==
LOC: RAD 08:21
PROVIDERS: PCP Nurse Practitioner Family; Visit Provider Nurse Practitioner Obstetrics & Gynecology
DX: Z34.91 Encounter for supervision of normal pregnancy, unspecified, first trimester (principal); Z3A.01 Less than 8 weeks gestation of pregnancy
CPT/HCPCS: 76801

== ENCOUNTER 2024-06-16 16:08 | Outpatient (CLI) | payer OTHER, SELFPAY ==
[2024-06-16 16:26] LABS: Basophils # 0.1 K/mm3 (0-0.2); Basophils % 0.8 % (0.1-2.0); Eosinophils # 0.2 K/mm3 (0.0-0.4); Eosinophils % 2.1 % (0.1-12.0); Hematocrit 40.2 % (37.0-47.0); Hemoglobin 14.1 g/dL (12.2-16.2); Lymphocytes # 2.1 K/mm3 (0.7-4.5); Lymphocytes % 24.2 % (10-50); Mean Corpuscular HGB Conc 35.1 g/dL (31.8-35.4); Mean Corpuscular Hemoglobin 31.8 pg (27.0-31.2); Mean Corpuscular Volume 90.7 fl (81-99); Monocytes # 0.5 K/mm3 (0.1-1.0); Monocytes % 5.5 % (1.7-9.3); Neutrophils # 5.8 K/mm3 (1.8-7.8); Neutrophils % 67.4 % (37.0-80.0); Platelet Count 223 K/mm3 (142-424); Red Blood Count 4.43 M/mm3 (4.20-5.40); Red Cell Distribution Width 13.2 % (11.5-17.5); White Blood Count 8.6 K/mm3 (4.8-10.8)
[2024-06-16 23:32] LABS: HIV (1&2) Antibody Rapid NONREACTIVE (NONREACTIVE)
[2024-06-17 05:29] LABS: HCV Ab Non Reactive (Non Reactive); Hepatitis B Surface Antigen Negative (Negative)
[2024-06-17 07:14] LABS: Rubella Antibodies, IgG 2.11 index (Immune >0.99)
[2024-06-17 13:15] LABS: Rapid Plasma Reagin Ab Titer Non Reactive titer (NonRea<1:1)
[2024-08-12 07:20] VITALS: BP 134/87; RESP 18; TEMP 36.9; O2SAT 100
[2024-08-12 18:30] VITALS: BP 122/70; RESP 18; TEMP 36.9; O2SAT 98
[2024-08-12 18:40] VITALS: BP 122/68; RESP 18; TEMP 36.9; O2SAT 97
[2024-08-12 18:50] VITALS: BP 101/34; RESP 18; TEMP 36.9; O2SAT 96
[2024-08-12 19:00] VITALS: BP 121/78; BP 123/86; RESP 18; TEMP 36.9; O2SAT 100; O2SAT 99
[2024-08-12 19:10] VITALS: BP 105/81; RESP 18; TEMP 36.9; O2SAT 100
== END 2024-08-12 19:20 | disposition home or self-care (01) ==
LOC: LAB 16:09
PROVIDERS: PCP Nurse Practitioner Family; Visit Provider Nurse Practitioner Obstetrics & Gynecology
DX: Z34.90 Encounter for supervision of normal pregnancy, unspecified, unspecified trimester (principal)
CPT/HCPCS: 36415; 85025; 86593; 86762; 86803; 86850; 87086; 87340; 87389

== ENCOUNTER 2024-08-12 15:52 | Day surgery (SDC) | payer OTHER, SELFPAY ==
[2024-08-12] VITALS (7 sets, daily range): BP systolic 125–138; BP diastolic 81–98; PULSE 68–84; RESP 16–18; TEMP 36.8–37.1; O2SAT 97–100; BMI 331.1
--- NOTE | 2024-08-12 16:04 | US_ITS ---
PROCEDURE INFORMATION: Exam: US Pelvis, Transvaginal, Non-Obstetric Exam date and time: 08/12/2024 4:15 PM Age: 29 years old Clinical indication: Other: Bleeding; Additional info: Recent miscarriage, hemorrhage TECHNIQUE: Imaging protocol: Real-time transvaginal pelvic (non-obstetric) ultrasound with image documentation. Transvaginal imaging was used for better evaluation of the endometrium, adnexa, and/or cervix. COMPARISON: US OB <= 14 WEEKS FETUS 06/13/2024 8:31 AM FINDINGS: Uterus: Anteverted uterus is enlarged 10 x 4.3 x 5.7 cm. Endometrial stripe is prominent 13 mm. Retained products of conception visualized. Right ovary/adnexa: Normal. 2.9 x 2.6 x 1.6 cm. No mass. Normal ovarian blood flow on color Doppler. Left ovary/adnexa: Normal. 3.9 x 3.3 x 2.5 cm. 2.6 cm corpus luteum cyst. Normal ovarian blood flow on color Doppler. Urinary bladder: Urinary bladder is limited. Intraperitoneal space: No free fluid. IMPRESSION: 1. Anteverted uterus is enlarged. 2. Endometrial stripe is prominent. Retained products of conception visualized.
--- NOTE | 2024-08-12 16:08 | PC.NURSE ---
pt to US via wheelchair
--- NOTE | 2024-08-12 16:08 | PC.NURSE ---
1608 Pt to ultrasound
[2024-08-12 16:10] LABS: Basophils % 0.5 % (0.1-2.0); Eosinophils # 0.2 K/mm3 (0.0-0.4); Eosinophils % 2.6 % (0.1-12.0); Hematocrit 41.1 % (37.0-47.0); Hemoglobin 13.6 g/dL (12.2-16.2); Lymphocytes # 1.3 K/mm3 (0.7-4.5); Lymphocytes % 20.1 % (10-50); Mean Corpuscular HGB Conc 33.1 g/dL (31.8-35.4); Mean Corpuscular Hemoglobin 30.7 pg (27.0-31.2); Mean Corpuscular Volume 92.8 fl (81-99); Mean Platelet Volume 10.5 fl (7.4-10.4); Monocytes # 0.5 K/mm3 (0.1-1.0); Neutrophils # 4.5 K/mm3 (1.8-7.8); Neutrophils % 69.3 % (37.0-80.0); Platelet Count 227 K/mm3 (142-424); Red Blood Count 4.43 M/mm3 (4.20-5.40); Red Cell Distribution Width 12.7 % (11.5-17.5); White Blood Count 6.5 K/mm3 (4.8-10.8)
--- NOTE | 2024-08-12 16:22 | HMH.EDGENADL ---
Discharge Plan Disposition Patient Disposition: Admitted Clinical Impressions Clinical Impression: Retained products of conception, Vaginal bleeding Discharge ED Provider: Viviana Galeas General Adult HPI General Chief complaint: Vaginal Bleeding Stated complaint: heavy menstrual cycle Time Seen by Provider: 08/12/24 16:03 Mode of Arrival: Ambulatory Source of Information: Patient Limitations: No Limitations Description of Symptoms (Recalled from ER Triage Doc. by RN): Pt presents with c/o heavy vaginal bleeding. Pt states she had a miscarriage 4 weeks ago and was unable to be seen by Dr. Chiu. Pt states she has been soaking through a super tampon and soaking a pad, and is passing large clots. Pt states she has had 2 births and 2 miscarriages. History of Present Illness HPI narrative: This patient is a 29-year-old female G4, P2 presenting to the emergency department for evaluation with concern for vaginal bleeding. Patient reports that she was approximately 10 weeks when she had a miscarriage 4 weeks ago. She was not able to follow up or see anyone during or after this miscarriage that she managed at home because of insurance issues. She started having bleeding today that is very heavy with passage of large clots. She states she is stroking through an overnight pad and super tampon every hour. No other concerns noted. Related Data Previous Rx's ?Medication ?Instructions ?Recorded valacyclovir 500 mg tablet 500 mg PO DAILY #60 tabs 05/29/24 terconazole 0.8 % vaginal cream 1 appful vaginal HS 3 days #20 07/02/24 grams Allergies Allergy/AdvReac Type Severity Reaction Status Date / Time No Known Allergies Allergy Verified 07/02/24 14:29 [facility] Disclaimer: The information contained in this section may have been updated after the patient was seen, as this information can be updated by other users. Medical History Patient left before triage assessment Palpitations Dyspnea Social History Smoking Status: Never smoker alcohol intake: never substance use type: denies use current occupational status: employed Travel in the last 8 weeks: None Have you lived/traveled outside [place] in past 30 days?: No Contact w/someone who lives/traveled outside US past 30 days?: No Exposure to someone with infectious disease in past 14 days?: No Do you have a fever (greater than 100.4 F or 38 C)?: No Have you tested positive for COVID-19: No Exposed to someone with COVID-19 in past 14 days?: No Do you have a sore throat?: No Do you have a cough?: No Do you have any weakness?: No Do you have any diarrhea?: No Are you experiencing any unusual bleeding?: No Do you have any muscle aches/pain?: No Do you have any abdominal pain?: No Are you experiencing loss of taste or smell?: No Other Medical History Have you received the Flu Vaccine for this season: No Have you received the Pneumonia Vaccine: No ROS Obtained: Yes All systems reviewed & no additional complaints except as documented Physical Exam General General appearance: alert and in no apparent distress Head Head exam: atraumatic and normocephalic Eye Eye exam: Present normal appearance, PERRL and EOMI ENT ENT exam: Present normal exam, normal oropharynx, mucous membranes moist and normal external ear exam Neck Neck exam: Present normal inspection, full ROM and trachea midline; Absent tenderness Chest Chest inspection: Present normal inspection and symmetric chest wall rise; Absent tenderness Respiratory Respiratory exam: Present normal lung sounds bilaterally; Absent respiratory distress, wheezes, stridor or accessory muscle use Cardiovascular Cardiovascular exam: Present regular rate and normal rhythm Abdominal Exam Abdominal exam: Present soft; Absent distention, tenderness or guarding Extremities Exam Extremities exam: Present normal inspection, full ROM and normal capillary refill; Absent tenderness or edema Back Exam Back exam: Present normal inspection and full ROM; Absent tenderness Neurological Exam Neurological exam: Present alert, oriented X3, CN II-XII intact and normal gait; Absent motor sensory deficit Psychiatric Psychiatric exam: Present normal affect and normal mood Skin Skin exam: Present warm and dry Medical Decision Making Medical Records Medical records reviewed: Yes I reviewed the patient's medical records. Screening: Per USPSTF and CDC recommendations, given the prevalence of disease in our region, it is our hospital?s policy to screen for HIV and viral Hepatitis for all patients aged 18 and over and those with ongoing risk factors. Adithya Inquiry Pt receiving controlled substance: No Vital Signs: 08/12/24 15:58 08/12/24 16:00 08/12/24 16:01 Temperature 98.8 F Temperature Source Oral Pulse Rate 84 77 Pulse Rate [Right Radial] 78 Respiratory Rate 18 Blood Pressure 138/98 H 134/95 H Blood Pressure [Right Arm] 138/98 H Blood Pressure Mean [Right Arm] 111 Blood Pressure Source Blood Pressure Source [Right Arm] Automatic Cuff Blood Pressure Position Blood Pressure Position [Right Arm] Sitting 02 Sat by Pulse Oximetry 99 100 100 Oxygen Delivery Method Room Air Room Air Room Air 08/12/24 17:24 08/12/24 17:30 08/12/24 17:55 Temperature 98.2 F Temperature Source Oral Pulse Rate 80 84 68 Pulse Rate [Right Radial] Respiratory Rate 18 Blood Pressure 135/82 125/96 H 125/96 H Blood Pressure [Right Arm] Blood Pressure Mean [Right Arm] Blood Pressure Source Automatic Cuff Blood Pressure Source [Right Arm] Blood Pressure Position Sitting Blood Pressure Position [Right Arm] 02 Sat by Pulse Oximetry 97 99 Oxygen Delivery Method Room Air Room Air Room Air Lab Data Lab results reviewed: Yes I reviewed the patient's lab results. Lab Results 08/12/24 16:00: WBC 6.5, RBC 4.43, Hgb 13.6, Hct 41.1, MCV 92.8, MCH 30.7, MCHC 33.1, RDW 12.7, Plt Count 227, MPV 10.5 H, Neut % (Auto) 69.3, Lymph % (Auto) 20.1, [place] % (Auto) 7.0, Eos % (Auto) 2.6, Baso % (Auto) 0.5, Neut # (Auto) 4.5, Lymph # (Auto) 1.3, [place] # (Auto) 0.5, Eos # (Auto) 0.2, Baso # (Auto) 0.0, Sodium 140, Potassium 3.5, Chloride 105, Carbon Dioxide 29, Anion Gap 9.5, BUN 15, Creatinine 0.70, Estimated Creat Clear 109, Estimated GFR 98, Est GFR ( Amer) 118, Glucose 80, Calcium 9.2, Total Bilirubin 0.6, AST 35, ALT 23, Alkaline Phosphatase 47, Total Protein 7.4, Albumin 4.4, Globulin 3.0, Albumin/Globulin Ratio 1.5, HCG, Quant 6 H 08/12/24 16:00 08/12/24 16:00 Orders (Tests/Meds): ED MEDICATIONS Generic Name Dose Route Start Last Admin Trade Name Freq PRN Reason Stop Dose Admin Hydromorphone HCl 0.5 mg 08/12/24 18:39 Hydromorphone 2mg/Ml Syringe IV 08/12/24 20:39 Q5MINP PRN Severe Pain (7-10) Meperidine HCl 25 mg 08/12/24 18:39 Meperidine 25mg/Ml 1ml Syringe IV 08/12/24 20:39 Q5MINP PRN Shivering Morphine Sulfate 2 mg 08/12/24 18:39 Morphine 2mg/Ml Syringe IV 08/12/24 20:39 Q5MINP PRN Moderate Pain (4-6) Ondansetron HCl 4 mg 08/12/24 18:39 Ondansetron 4mg/2ml Vial IV 08/12/24 20:39 Q6HP PRN Nausea Promethazine HCl 6.25 mg 08/12/24 18:39 Promethazine Hcl 25mg/Ml 1ml Vial IV 08/12/24 20:39 [id number] PRN Nausea And Vomiting Sodium Chloride 25 ml 08/12/24 18:39 Sodium Chloride 0.9% 25ml Bag IV 08/12/24 20:39 NEEDED PRN for Use with IV Promethazine ORDERS Category Date Time Status Membership Sales Manager Consult [Consult to Gynecology] [CONS] Routine Cons 08/12/24 17:17 Ordered US transvaginal Stat Exams 08/12/24 16:04 Completed Beta HCG, Quant [HCG,Quantitative] Stat Lab 08/12/24 16:00 Completed CBC w/Auto Diff [Complete Blood Count Auto Diff] Stat Lab 08/12/24 16:00 Completed CMP [Comprehensive Metabolic Panel] Stat Lab 08/12/24 16:00 Completed Medical Decision Narrative: In summary, this patient is a 29-year-old female presenting to the Emergency Department for evaluation of vaginal bleeding in setting of recent miscarriage. Differential diagnoses considered include but are not limited to retained products of conception, uterine fibroid, with complication, anemia. Ruling out the most morbid conditions drove assessment. I reviewed patient's past medical records and noted prior gynecology evaluation 06/16/2024. I also noted OB ultrasound from 06/13/2024 showing viable intrauterine . I noted blood type is a positive. On exam, the patient is sitting upright in bed in no acute distress. Vitals are reassuring on cardiac telemetry. Abdominal exam is benign. Workup included CBC, CMP, quantitative hCG, transvaginal ultrasound. I performed pelvic exam which was concerning for some pooling in the vaginal vault. I independently interpreted ultrasound prior to the radiologist read and noted change products of conception. Please see their read for final interpretation. Labs were obtained that demonstrated normal hemoglobin, patient is hemodynamically stable. hCG undetectable. I had an indirect discussion with Dr. Fitch with gynecology given retained products and active bleeding, and he took the patient to the OR for D&C. She was taken in stable condition. Critical Care Critical Care Time Critical Care Time: No
--- NOTE | 2024-08-12 16:31 | PC.NURSE ---
pt returned from US via wheelchair
[2024-08-12 16:37] LABS: Alanine Aminotransferase 23 U/L (12-78); Albumin Level 4.4 g/dl (3.5-5.0); Albumin/Globulin Ratio 1.5 (1.1-1.8); Alkaline Phosphatase 47 U/L (38-126); Anion Gap 9.5 mEq/L (5-15); Aspartate Amino Transferase 35 U/L (14-36); Bilirubin,Total 0.6 mg/dl (0.2-1.3); Blood Urea Nitrogen 15 mg/dl (7-17); Calcium 9.2 mg/dl (8.4-10.2); Carbon Dioxide 29 mmol/L (22.0-30.0); Chloride 105 mmol/L (98-107); Creatinine Clearance Estimated 109 mL/min (50-200); Estimated Glomerular Filt Rate 98 ml/min (>60); GFR (African American) 118 ML/MIN (>60); Glucose 80 mg/dl (74-100); Potassium 3.5 mmoL/L (3.5-5.1); Sodium 140 mmol/L (136-145); Total Protein,Serum 7.4 g/dl (6.3-8.2)
[2024-08-12 16:54] LABS: HCG,Quantitative 6 mIU/ml (0-5.42)
--- NOTE | 2024-08-12 17:10 | PC.NURSE ---
Dr. Galeas at BS for pelvic exam with Aris Rinaldi, ALVIN as money market clerk
--- NOTE | 2024-08-12 17:16 | PC.NURSE ---
Dr. Galeas speaking with consignee SIZE ROLLER OPERATOR
--- NOTE | 2024-08-12 17:18 | PC.NURSE ---
HOUSE aware to call in OR team to prep for D&C
--- NOTE | 2024-08-12 17:27 | PC.NURSE ---
Sx team paged at [phone]. Received call back from Anum Whitehead, and Karin within 4 min.
--- NOTE | 2024-08-12 17:45 | P.HP_ITS ---
History of Present Illness *Admission Date: 08/12/24 *Reason for visit:: Missed , heavy bleeding. *History of present illness: She is a 29-year-old 4 para 2 aborta 2 now who was seen by me at 7 weeks in May. Patient reports that she was approximately 10 weeks when she had a miscarriage 4 weeks ago. She was not able to follow up or see anyone during or after this miscarriage that she managed at home because of insurance issues. She started having bleeding today that is very heavy with passage of large clots. She states she is stroking through an overnight pad and super tampon every hour. No other concerns noted. She thought she had a complete miscarriage but then started having heavy bleeding night. Ultrasound today confirms that there are still retained products of conception. As a result of that she is offered dilation and evacuation. She last ate at noon today. [facility] Disclaimer: The information contained in this section may have been updated after the patient was seen, as this information can be updated by other users. Medical History Patient left before triage assessment Palpitations Dyspnea Social History Smoking Status: Never smoker alcohol intake: never substance use type: denies use current occupational status: employed Travel in the last 8 weeks: None Have you lived/traveled outside [place] in past 30 days?: No Contact w/someone who lives/traveled outside [place] past 30 days?: No Exposure to someone with infectious disease in past 14 days?: No Do you have a fever (greater than 100.4 F or 38 C)?: No Have you tested positive for COVID-19: No Exposed to someone with COVID-19 in past 14 days?: No Do you have a sore throat?: No Do you have a cough?: No Do you have any weakness?: No Do you have any diarrhea?: No Are you experiencing any unusual bleeding?: No Do you have any muscle aches/pain?: No Do you have any abdominal pain?: No Are you experiencing loss of taste or smell?: No Other Medical History Have you received the Flu Vaccine for this season: No Have you received the Pneumonia Vaccine: No Review of Systems Review of Systems Review of systems:: pertinent systems reviewed and negative unless documented below Meds Home Medications and Allergies Home Medications ?Medication ?Instructions ?Recorded ?Confirmed ?Type valacyclovir 500 mg tablet 500 mg PO DAILY #60 tabs 05/29/24 07/02/24 Rx terconazole 0.8 % vaginal cream 1 appful vaginal HS 3 days #20 07/02/24 07/02/24 Rx grams New Prescriptions to Start Prescriptions: Allergies Allergy/AdvReac Type Severity Reaction Status Date / Time No Known Allergies Allergy Verified 07/02/24 14:29 Exam Data for Last 24 hours Vital signs and Labs for Last 24 Hours: Temp Pulse Resp BP Pulse Ox O2 Del Method 98.8 F 84 18 125/96 H 99 Room Air 08/12/24 16:01 08/12/24 17:30 08/12/24 16:01 08/12/24 17:30 08/12/24 17:30 08/12/24 17:30 Laboratory Results - last 24 hr 08/12/24 16:00: WBC 6.5, RBC 4.43, Hgb 13.6, Hct 41.1, MCV 92.8, MCH 30.7, MCHC 33.1, RDW 12.7, Plt Count 227, MPV 10.5 H, Neut % (Auto) 69.3, Lymph % (Auto) 20.1, [place] % (Auto) 7.0, Eos % (Auto) 2.6, Baso % (Auto) 0.5, Neut # (Auto) 4.5, Lymph # (Auto) 1.3, [place] # (Auto) 0.5, Eos # (Auto) 0.2, Baso # (Auto) 0.0, Sodium 140, Potassium 3.5, Chloride 105, Carbon Dioxide 29, Anion Gap 9.5, BUN 15, Creatinine 0.70, Estimated Creat Clear 109, Estimated GFR 98, Est GFR ( Amer) 118, Glucose 80, Calcium 9.2, Total Bilirubin 0.6, AST 35, ALT 23, Alkaline Phosphatase 47, Total Protein 7.4, Albumin 4.4, Globulin 3.0, Albumin/Globulin Ratio 1.5, HCG, Quant 6 H I & O for Last 24 hours: Intake & Output 08/10/24 08/11/24 08/12/24 08/13/24 11:59 11:59 11:59 11:59 Weight 2052 lb Constitutional Constitutional: no acute distress *Routine HEENT Exam Head: Present normocephalic Eye: Present EOMI and PERRL ENT: Present mucous membranes moist *Routine Neck Exam Neck: Present supple; Absent lymphadenopathy *Routine Respiratory Exam Respiratory: Present CTA bilaterally *Routine Cardiovascular Exam Cardiovascular: Present RRR *Routine Abdominal Exam Abdominal: Present soft and normoactive bowel sounds; Absent tenderness *Routine Rectal Exam Rectal:: deferred *Routine Genitalia Exam Genitalia:: deferred *Routine Extremities Exam Extremities: Absent cyanosis, clubbing or edema *Routine Skin Exam Skin: Present warm; Absent rash *Routine Neurological Exam Neurological: Present alert and oriented X3 Assessment and Plan *Assessment and plan (1) Vaginal bleeding: Status: Acute Category: Medical Code(s): N93.9 - Abnormal uterine and vaginal bleeding, unspecified (2) Retained products of conception: Status: Acute Category: Medical (3) Incomplete : Status: Acute Category: Medical Code(s): O03.4 - Incomplete spontaneous without complication Plan We will go ahead with a dilation and evacuation with [place] suction. We discussed the risk of surgery that includes bleeding, infection, injuries to other structures. We discussed the rare risk of perforation. All questions were answered and consents were signed.
--- NOTE | 2024-08-12 17:54 | PC.NURSE ---
[id number] anesthesia arrives to transport patient to the OR
--- NOTE | 2024-08-12 17:57 | PC.NURSE ---
PT GONE TO OR AT THIS TIME
--- NOTE | 2024-08-12 18:29 | P.OP_ITS ---
Date of procedure: 08/12/24 Pre-op Diagnosis:: Incomplete Post-op Diagnosis:: Incomplete Procedure performed:: Dilation and evacuation with [place] suction Surgeon:: Oscar Chiu MD SENIOR TALENT ACQUISITION SPECIALIST:: Rodriguez Hernandez Anesthesia: LMA Estimated blood loss (mL): 50 Clinical Note:: She is a 29-year-old 4 para 2 now aborta 2 who thought she had a miscarriage about 4 weeks ago. She then began to have heavier bleeding last night. She came into the emergency department. Ultrasound confirmed that she had retained products of conception. As result of that she is offered dilation evacuation. Operative findings:: She had an anteverted bulky uterus. There was significant tissue within the endometrial cavity Operative note:: She was taken the operating room where LMA anesthesia was found to be adequate. She was prepped draped normal sterile fashion in the lithotomy position. A weighted speculum was placed in the vagina and the anterior lip of the cervix was grasped with a tenaculum. I dilated the cervix to 10 cm. Using a 10 mm curved [place] suction curette I was able to evacuate the uterine contents. This was followed by gentle curettage. She tolerated the procedure well and was taken the recovery room in excellent condition. All sponge and instrument counts were correct. The estimated blood loss was 50 cc. Condition: stable Disposition: PACU Specimens:: Retained products of conception Complications:: None
--- NOTE | 2024-08-12 18:37 | P.PNANES_ITS ---
[facility] Disclaimer: The information contained in this section may have been updated after the patient was seen, as this information can be updated by other users. Medical History Patient left before triage assessment Palpitations Dyspnea Social History Smoking Status: Never smoker alcohol intake: never substance use type: denies use current occupational status: employed Travel in the last 8 weeks: None Have you lived/traveled outside [place] in past 30 days?: No Contact w/someone who lives/traveled outside [place] past 30 days?: No Exposure to someone with infectious disease in past 14 days?: No Do you have a fever (greater than 100.4 F or 38 C)?: No Have you tested positive for COVID-19: No Exposed to someone with COVID-19 in past 14 days?: No Do you have a sore throat?: No Do you have a cough?: No Do you have any weakness?: No Do you have any diarrhea?: No Are you experiencing any unusual bleeding?: No Do you have any muscle aches/pain?: No Do you have any abdominal pain?: No Are you experiencing loss of taste or smell?: No [facility] Anesthesia Checklist Patient Identification Patient Identification: Arm Band Structural Data Admitted From: Emergency Dept Planned Operative Procedure/s: D&E with [place] Suction Consent for Planned Operative Procedure(s) Verified: Yes Verified Documents: Surgical Consent and History and Physical NPO Status Verified Time NPO: 12:00 (light meal) Additional verifications Anesthesia Reactions: No Airway Assessment Mallampati Score:: Class II C-Spine Mobility Assessed: Yes TMJ Mobility Assessed: Yes Dentition: Good Dentition Neurological Assessment Level of Consciousness: Awake, Alert and Appropriate Anesthesia Plan Anesthesia Risk discussed: Yes Anesthesia Plan: Verified ASA Class: II (e) Anesthesia Type: General
--- NOTE | 2024-08-12 18:38 | EXP.ANES.I ---
[facility] Anesthesia Record Part I Anesthesia Record I Intake, IV Amount: 500 Hydration: Adequate Estimated blood loss (mL): 50 Urine output (mL): 50 Blood Products used (#): none Blood Pressure: 126/81 SaO2: 97 Pulse Rate: 71 Airway Patency: Patent Respiratory Rate: 16 Temperature: 98.5 F Patient is:: Drowsy and Stable Stable to PACU at:: 18:30
--- NOTE | 2024-08-13 07:45 | P.PNANES_ITS ---
[facility] Anesthesia Record Part II Anesthesia Record Part II Discharge Time: 19:00 Destination: Surgical Day Care (OP Surgery) PACU nurse assessment reviewed?: Yes Patient Condition:: Good Anesthesia Complications:: None Swallowing reflex intact?: Yes Airway Patency: Patent Cyanosis?: No Blood Pressure: 123/86 SaO2: 99 Respiratory Rate: 18 Pulse Rate: 71 Temperature: 98.5 F Mental Status: Alert & Oriented Pain level:: 0 Nausea and/or vomitting:: None Intake, IV Amount: 0 Hydration: Adequate
[2024-08-13 07:47] VITALS: BP 123/86; PULSE 71; RESP 18; TEMP 36.9; O2SAT 99
== END 2024-08-12 18:01 ==
LOC: ER 17:42 → SDC 18:01
PROVIDERS: Emergency Provider Emergency Medicine; PCP Nurse Practitioner Family; Visit Provider Nurse Practitioner Obstetrics & Gynecology
DX: N93.9 Abnormal uterine and vaginal bleeding, unspecified (principal); O03.4 Incomplete spontaneous abortion without complication
CPT/HCPCS: 59812; 76830; 80053; 84702; 85025; 99285; J1100; J1885; J2250; J2405; J3010